=== PATIENT | male | born 1955 | race Caucasian/White ===

== ENCOUNTER 2018-10-11 09:11 | Inpatient (IN) | payer MEDICAID ==
[~2018-10-11] VITALS: Ht 172.7 cm; Wt 107.5 kg
[2018-10-11] MEDS ORDERED: ASPI-1159 MT (09:31)
[2018-10-11] MEDS ORDERED: CLOP75TA16 MT (09:31)
[2018-10-11] MEDS ORDERED: CARV3.1242 MT (09:31)
[2018-10-11] MEDS ORDERED: IOHEXOL-300 100 ML BOTTLE ONE ×2 (11:25→12:13)
[2018-10-11] MEDS ORDERED: IODIXANOL 320MG/ML 100 ML BOTTLE IV ONE (11:25)
[2018-10-11] MEDS ORDERED: MIDAZOLAM HCL 2 MG/2 ML VIAL ONE (11:25)
[2018-10-11] MEDS ORDERED: LIDOCAINE HCL 1% 20ML VIAL (Pyxis) INJ ONE (11:26)
[2018-10-11] MEDS ORDERED: FENTANYL CITRATE/PF 50MCG/ML 2ML VIAL ONE (11:26)
[2018-10-11] MEDS ORDERED: HYDROCORTISONE SOD SUCCINATE 250 MG/2 ML VIAL ONE (11:34)
[2018-10-11] MEDS ORDERED: DIPHENHYDRAMINE 50MG/ML VIAL ONE (11:34)
[2018-10-11] MEDS ORDERED: FAMOTIDINE 20MG/2ML VIAL IV ONE (11:34)
[2018-10-11] MEDS ORDERED: ASPIRIN 325MG EC TABLET PO ONE (12:35)
[2018-10-11] MEDS ORDERED: CLOPIDOGREL 75MG TABLET ONE (12:35)
[2018-10-11 13:00] VITALS: BP 126/71
[2018-10-11] MEDS ORDERED: ONDANSETRON HCL 4MG/2ML INJ IV PRN (13:00)
[2018-10-11] MEDS ORDERED: ACETAMINOPHEN 325MG TABLET PO PRN (13:00)
[2018-10-11] MEDS ORDERED: ATROPINE SULFATE 1MG/10ML SYR IV PRN (13:00)
[2018-10-11 13:23] VITALS: BP 120/76
[2018-10-11] MEDS ORDERED: ZOLPIDEM TARTRATE 5MG TABLET PO PRN (14:45)
[2018-10-11 16:00] VITALS: BP 113/67
[2018-10-11] MEDS ORDERED: NICARDIPINE 100MCG/ML 10ML VIAL (CATH LAB) IV ONE (16:46)
[2018-10-11] MEDS ORDERED: HEPARIN SODIUM 1,000 UNIT/1ML VIAL IV ONE (16:46)
[2018-10-11] MEDS ORDERED: NITROGLYCERIN 50MCG/ML 10ML VIAL (CATH LAB) IV ONE (16:46)
[2018-10-11 18:00] VITALS: BP 108/77
[2018-10-11] MEDS ORDERED: SODIUM CHLORIDE 0.45% 1,000 ML IV SCH (18:30)
[2018-10-11] MEDS ORDERED: FAMOTIDINE 20MG/2ML VIAL IV NR (18:30)
[2018-10-11] MEDS ORDERED: METHYLPREDNISOLONE SOD SUCC 125 MG/2 ML VIAL IV NR (18:30)
[2018-10-11] MEDS ORDERED: DIPHENHYDRAMINE 50MG/ML VIAL IV NR (18:30)
[2018-10-11 20:00] VITALS: BP 126/83
[2018-10-11 22:00] VITALS: BP 124/73
[2018-10-12] VITALS (7 sets, daily range): BP systolic 125–154; BP diastolic 71–97
[2018-10-12 06:21] LABS: HEMATOCRIT. 41.6 % (42.0-52.0); HEMOGLOBIN. 14.1 g/dL (14.0-18.0); MEAN CORPUSCULAR VOLUME 88.8 fL (80.0-94.0); MEAN PLATELET VOLUME 8.5 fl (7.4-10.4); PLATELET 271 x1000/uL (130-400); RED BLOOD CELL COUNT 4.68 mill/uL (4.7-6.1); RED CELL DISTRIBUTION WIDTH 13.8 % (11.6-14.6)
[2018-10-12 06:33] LABS: CHLORIDE 108 mEq/L (98-107)
[2018-10-12] MEDS ORDERED: CLOPIDOGREL 75MG TABLET PO SCH (09:00)
[2018-10-12] MEDS ORDERED: ASPIRIN 325MG TABLET PO SCH (09:00)
[2018-10-12 09:54] LABS: PLATELET ESTIMATE NORMAL
== END 2018-10-12 12:30 | disposition home or self-care (01) | DRG 175 ==
LOC: CCL 09:11 → 3WST 09:12
PROVIDERS: ADMIT Specialist; ATTEND Specialist
PROC: 4A023N7 Measurement of Cardiac Sampling and Pressure, Left Heart, Percutaneous Approach (ICD-10-PCS; principal; 2018-10-11)
PROC: 027034Z Dilation of Coronary Artery, One Artery with Drug-eluting Intraluminal Device, Percutaneous Approach (ICD-10-PCS; 2018-10-11)
PROC: B2151ZZ Fluoroscopy of Left Heart using Low Osmolar Contrast (ICD-10-PCS; 2018-10-11)
PROC: B2111ZZ Fluoroscopy of Multiple Coronary Arteries using Low Osmolar Contrast (ICD-10-PCS; 2018-10-11)
DX: T82.855A Stenosis of coronary artery stent, initial encounter (principal); I11.0 Hypertensive heart disease with heart failure; I50.22 Chronic systolic (congestive) heart failure; I25.10 Atherosclerotic heart disease of native coronary artery without angina pectoris; E66.09 Other obesity due to excess calories; I25.5 Ischemic cardiomyopathy; Y83.1 Surgical operation with implant of artificial internal device as the cause of abnormal reaction of the patient, or of later complication, without mention of misadventure at the time of the procedure; I25.2 Old myocardial infarction; Z95.5 Presence of coronary angioplasty implant and graft; Z79.02 Long term (current) use of antithrombotics/antiplatelets; Z91.041 Radiographic dye allergy status; Z68.36 Body mass index [BMI] 36.0-36.9, adult; Y92.89 Other specified places as the place of occurrence of the external cause
CPT/HCPCS: 36415; 80048; 85347; 92928; 92978; 93005; 93458; C1725; C1753; C1769; C1874; C1887; C1893; J1200; J1644; J1720; J2250; J2930; J3010; J3490; Q9967